=== PATIENT | female | born 1990 | race Caucasian/White ===

== ENCOUNTER 2019-11-14 11:03 | Day surgery (SDC) | payer OTHER ==
[~2019-11-14 11:03] MED LIST: FENTANYL CITR 250 MCG/5 ML ONE; LIDOCAINE 2% MPF 5 ML VIAL ONE; MIDAZOLAM HCL 2 MG/2 ML INJ ONE; ROCURONIUM 50 MG/5 ML VIAL IV ONE; dexAMETHasone 10 MG/ML VIAL ONE; propofoL 200 MG/20 ML VIAL IV ONE
[2019-11-14] MEDS ORDERED: ONDANSETRON 4 MG/2 ML VIAL ONE (11:17)
[2019-11-14] MEDS ORDERED: FENTANYL CITR 250 MCG/5 ML ONE (11:17)
[2019-11-14] MEDS ORDERED: propofoL 200 MG/20 ML VIAL IV ONE (11:17)
[2019-11-14] MEDS ORDERED: LIDOCAINE 1% MPF 5 ML VIAL ONE (11:17)
[2019-11-14] MEDS ORDERED: MIDAZOLAM HCL 2 MG/2 ML INJ ONE (11:18)
[2019-11-14] MEDS ORDERED: Ringers Lactate 1,000 ML IV ONE (11:20)
[2019-11-14] MEDS ORDERED: ROCURONIUM 50 MG/5 ML VIAL IV ONE (11:26)
[2019-11-14] MEDS ORDERED: NA CHLORIDE 0.9% 500 ML ONE (11:27)
[2019-11-14 11:30] LABS: Specific Gravity 1.015 (1.005-1.030)
[2019-11-14] MEDS: OXYMETAZOLINE HCL 0.05% 15ML NAS ONE ×5 (11:35→12:10)
[2019-11-14] MEDS: LIDOCAINE 1% W/EPI 1:100,000 MDV 20 ML VIAL ONE ×3 (11:40→12:15)
[2019-11-14] MEDS ORDERED: GLYCOPYRROLATE 0.2 MG/ML SYR ONE (12:48)
[2019-11-14] MEDS ORDERED: KETOROLAC 30 MG/ML INJ ONE (12:48)
[2019-11-14] MEDS ORDERED: NEOSTIGMINE 1 MG/ML -5 ML ONE (12:49)
[2019-11-14 13:19] VITALS: O2SAT 100
[2019-11-14] MEDS: HYDROMORPHONE HCL 1 MG/ML INJ ONE ×2 (13:30→13:40)
[2019-11-14 14:19] VITALS: TEMP 97.1
[2019-11-14] MEDS ORDERED: TRAMADOL HCL 50 MG TAB ONE (14:52)
[2019-11-14 15:30] VITALS: BP 127/81
--- NOTE | 2019-11-14 23:09 | P.BOP ---
Preoperative diagnosis: septal deviation, ITH Postoperative diagnosis: same Primary procedure: septoplasty Secondary procedure: SMR equipment maint tech: NONE,NONE Estimated blood loss: 15ml Specimen: nasal septum fragments Findings: L septal spur, large IT Anesthesia: General Complications: None Implants: Buenrostro splints Fluids & blood products: see pricila. records Transferred to: Recovery Room Condition: Good
--- NOTE | 2019-11-15 20:09 | OP ---
Date of Procedure: 11/14/2019 Surgeon: Christi Cote MD Manager Medical Writing: None. Preoperative Diagnoses: Septal deviation, turbinate hypertrophy. Postoperative Diagnoses: Septal deviation, turbinate hypertrophy. Procedure: Septoplasty with turbinate reduction. Surgical Findings: Large left septal spur with large turbinates. Specimens: Septal bone and cartilage. Implants: Buenrostro splints to the bilateral nasal cavity. Indication For Procedure: Cyndi Meeks is a 29-year-old female who presented to the [facility] complaining of nasal obstruction with previous treatment including Zyrtec and daily fluticasone for several months. She was previously seen by 2 ENTs in the [facility] with conflicting recommendations regarding surgery. The clinical findings included moderate congestion strands of mucin in the nasal cavity, large turbinates and a deviated septum. The risks , benefits, and alternatives to the proposed procedure was discussed and the patient was brought to the operating room. Details Of Procedure: After induction of anesthesia, the patient's nasal hairs were trimmed and the nasal cavity was packed with Afrin-soaked pledgets. The face was draped in a sterile fashion for nasal surgery. The pledgets were removed and the nasal cavity was examined with aid of a nasal speculum and headlight. The patient was noted to have a large left septal spur and the septum was injected with 1% lidocaine with epinephrine. After time for effect, a left raymond-transfixion incision was made in the caudal aspect of the nasal mucosa. Bilateral mucoperichondrial flaps were elevated using a Providence elevator. The Providence elevator, Ring rongeurs, and Kalee were used to remove the bony spur. The remainder of the septum was minimally deviated anteriorly. There was some mild high right posterior deviation, but this was not felt to likely be contributing to her nasal obstruction symptoms. The attention was then turned to the inferior turbinates. The inferior turbinates were injected with 1% lidocaine with epinephrine. A 15- blade scalpel was used to make an incision in the head of the right and left inferior turbinates. The Mihai elevator was used to develop a submucosal pocket. The microdebrider fitted with inferior turbinate blade was then used to remove excess soft tissue from the turbinates. After adequate resection, additional resection was performed on the inferior aspect of the turbinate to ensure an adequate nasal airway. Afrin-soaked pledgets were applied for several minutes to aid in hemostasis. The Norris elevator was then placed within the nasal cavity and used to down fracture the nay inferior turbinates. Following this, the attention was turned back to the septum. The hemitransfixion incision was closed using a running plain gut suture. Additional suture on a small Jeremie needle was used to approximate the mucosal flaps and reduce risk of septal hematoma. Due to mucosal tear in the area of the previous left septal spur and work on the inferior turbinate, it was concerned about risk of scar formation and opted to place Buenrostro airway splints bilaterally. The splints were secured to the septum using a single 4-0 nylon suture. The nasal cavity, nasopharynx, oropharynx were thoroughly suctioned. An orogastric tube was used to remove stomach contents. All pledget counts were confirmed correct and the patient was returned to care of Anesthesia for awakening extubation, which proceeded without difficulty. Disposition: The patient will be discharged home later today in the care of her family and follow up with Dr. Cote in 7-14 days for removal of the Buenrostro splints. BISI/FLETCHER Voice ID: [id number] Report ID: [id number] BUTCH
== END 2019-11-14 15:28 | disposition home or self-care (01) ==
LOC: OR 11:03
PROVIDERS: ATTEND Otolaryngology
PROC: 09TL7ZZ Resection of Nasal Turbinate, Via Natural or Artificial Opening (ICD-10-PCS; 2019-11-14)
PROC: 09BM8ZZ Excision of Nasal Septum, Via Natural or Artificial Opening Endoscopic (ICD-10-PCS; principal; 2019-11-14 12:45)
DX: J34.2 Deviated nasal septum (principal); J34.3 Hypertrophy of nasal turbinates
CPT/HCPCS: 81025; 88305; 88311; 30520; 30140; J2704; J2250; J3010; J1170; J2710; J7120; J7040; J2405; J1100